=== PATIENT | female | born 1980 | race Caucasian/White ===

== ENCOUNTER 2017-04-15 14:41 | Emergency (ER) | payer BC ==
[2017-04-15 15:39] LABS: BASOPHIL % 0.4 % (0-2); PLATELET COUNT 348 x10^3mcL (130-400)
[2017-04-15 15:40] LABS: CALCIUM 9.3 mg/dL (8.5-10.1); CARBON DIOXIDE 32.4 mmol/L (21-32); CHLORIDE SERUM 102 mmol/L (98-107); GFR1 > 60 mL/min; GLUCOSE SERUM 85 mg/dL (74-106); POTASSIUM SERUM 3.9 mmol/L (3.5-5.1); SODIUM SERUM 139 mmol/L (136-145)
[2017-04-15 15:46] LABS: ALKALINE PHOSPHATASE 54 U/L (46-116); ALT/SGPT 29 U/L (14-59); AST/SGOT 26 U/L (15-37); BILIRUBIN TOTAL 0.22 mg/dL (0.20-1.00); TOTAL PROTEIN, SERUM 8.5 g/dL (6.4-8.2)
[2017-04-15 15:58] LABS: RED CELL DISTRIBUTION WIDTH 15.2 % (11.5-14.5)
[2017-04-15 16:48] VITALS: BP 129/81
== END 2017-04-15 16:48 | disposition home or self-care (01) ==
LOC: ED 14:41
PROVIDERS: Emergency Medicine
DX: R10.31 Right lower quadrant pain (principal)
CPT/HCPCS: 36415; J1885